=== PATIENT | female | born 1950 | race Caucasian/White ===

== ENCOUNTER → 2019-07-20 | Outpatient (CLI) | payer MEDICARE, BC ==
--- NOTE | 2019-07-20 11:38 | XR ---
KUB HISTORY: Chronic urinary tract infection Frontal KUB and 2 images There is retained fecal debris throughout the distribution of the colon. Calcifications are present w ithin the pelvis which may represent phleboliths. Degenerative disc changes are present in the visual ized spine. No evident bowel obstruction or pneumoperitoneum. Bowel gas may obscure underlying detail . IMPRESSION: Correlate for fecal stasis. Additional findings above.
== END | disposition home or self-care (01) ==
LOC: RADXRMAIN 09:06
PROVIDERS: ATTEND Urology
DX: N94.89 Other specified conditions associated with female genital organs and menstrual cycle (principal); K59.00 Constipation, unspecified
CPT/HCPCS: 74018